=== PATIENT | female | born 1945 | race African-American/Black ===

== ENCOUNTER 2022-07-30 10:13 | Emergency (ER) | payer BC ==
[~2022-07-30] VITALS: Ht 167.6 cm; Wt 75.0 kg
[2022-07-30 10:16] VITALS: TEMP 97.5; O2SAT 99
[2022-07-30 15:57] LABS: BASOPHILS % 0.9 % (0.0-2.0); EOSINOPHILS % 1.6 % (0.0-5.0); HEMATOCRIT. 35.4 % (36.0-48.0); HEMOGLOBIN. 11.7 g/dL (12.0-16.0); LYMPHOCYTES % 12.6 % (20.0-50.0); MEAN CORPUSCULAR HEMOGLOBIN 31.5 pg (28.0-32.0); MEAN CORPUSCULAR VOLUME 95.2 fL (81.0-99.0); MEAN PLATELET VOLUME 8.8 fl (7.4-10.4); MONOCYTES % 7.3 % (2.0-8.0); NEUTROPHILS % 77.6 % (40.0-76.0); PLATELET 299 x1000/uL (130-400); RED BLOOD CELL COUNT 3.72 mill/uL (4.2-5.4); RED CELL DISTRIBUTION WIDTH 16.2 % (11.6-14.6)
[2022-07-30] MEDS ORDERED: DOCUSATE SODIUM 100MG CAPSULE PO PRN (16:00)
[2022-07-30] MEDS ORDERED: LORAZEPAM 0.5MG TABLET PO PRN (16:00)
[2022-07-30] MEDS ORDERED: IPRATROPIUM/ALBUTEROL 0.5-3(2.5)MG/3ML NEB HHN PRN (16:00)
[2022-07-30] MEDS ORDERED: ACETAMINOPHEN 325MG TABLET PO PRN ×2 (16:00)
[2022-07-30] MEDS ORDERED: SODIUM CHLORIDE 0.9% 1,000 ML IV SCH (16:00)
[2022-07-30] MEDS ORDERED: CLONIDINE 0.1MG TABLET PO PRN (16:00)
[2022-07-30] MEDS ORDERED: HYDROCODONE/ACETAMINOPHEN 5/325MG TABLET PO PRN (16:00)
[2022-07-30] MEDS ORDERED: NALOXONE HCL 0.4MG/ML VIAL IV PRN (16:00)
[2022-07-30] MEDS ORDERED: ONDANSETRON HCL 4MG/2ML INJ IV PRN (16:00)
[2022-07-30 16:05] LABS: CHLORIDE 109 mEq/L (98-107)
[2022-07-30 20:45] VITALS: BP 150/78; PULSE 85; RESP 22
== END 2022-07-30 20:45 ==
LOC: ER 10:13
DX: K94.23 Gastrostomy malfunction (principal); R56.9 Unspecified convulsions; Z87.440 Personal history of urinary (tract) infections
CPT/HCPCS: 36415; 43762; 80053; 85025; 99284